=== PATIENT | female | born 1950 | race American Indian/Alaskan Native ===

== ENCOUNTER 2016-12-10 13:29 | Inpatient (IN) | payer MEDICARE ==
[2016-12-10] MEDS ORDERED: NACL 0.9% 500 ML 500 ML IV ONE (14:03)
[2016-12-10 14:35] LABS: Basophils % (Auto) 0.9 % (0.0-1.8); Eosinophils % (Auto) 0.3 % (0.0-4.3); Mean Corpuscular HGB Conc 30 % (30-34); Mean Corpuscular Volume 79 fl (79-97); Platelet Count 374 K/mm3 (140-440); Red Blood Count 3.67 M/mm3 (3.65-5.03); Red Cell Distribution Width 17.9 % (13.2-15.2); White Blood Count 11.7 K/mm3 (4.5-11.0)
[2016-12-10 14:42] LABS: Hemoglobin 8.6 gm/dl (10.1-14.3); Mean Corpuscular Hemoglobin 23 pg (28-32)
[2016-12-10 14:43] LABS: INR 1.42 (0.87-1.13); Partial Thromboplastin Time 26.8 Sec. (24.2-36.6)
[2016-12-10 14:54] LABS: Alanine Aminotransferase < 5 units/L (7-56); Albumin/Globulin Ratio 0.4 %; Alkaline Phosphatase 123 units/L (35-129); Anion Gap 27 mmol/L; Calcium 8.9 mg/dL (8.4-10.2); Carbon Dioxide 15 mmol/L (22-30); Glucose 101 mg/dL (65-100); Potassium 4.9 mmol/L (3.6-5.0); Sodium 146 mmol/L (137-145); Total Protein 9.9 g/dL (6.3-8.2)
[2016-12-10 15:04] LABS: BUN/Creatinine Ratio 26.44; Blood Urea Nitrogen 119 mg/dL (7-17)
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
[2016-12-10 15:49] LABS: Bacteria,Urine 1+ /HPF (Negative); Bilirubin,Urine NEG (Negative); Blood,Urine LG (Negative); Ketones,Urine TR mg/dL (Negative); Leukocyte Esterase,Urine MOD (Negative); Mucus,Urine 3+ /HPF; Nitrite,Urine NEG (Negative); Urobilinogen,Urine < 2.0 mg/dL (<2.0)
[2016-12-10 15:51] LABS: RBC,Urine > 182.0 /HPF (0.0-6.0)
[2016-12-10] MEDS ORDERED: NACL 0.9% 1000 ML 1,000 ML IV ONE (15:51)
[2016-12-10 15:52] LABS: WBC,Urine > 182.0 /HPF (0.0-6.0)
[2016-12-10] MEDS ORDERED: BABY ASPIRIN PO ONE (15:54)
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
[2016-12-10] MEDS ORDERED: ZOFRAN IV PRN (17:11)
[2016-12-10] MEDS ORDERED: DULCOLAX PR PRN (17:11)
[2016-12-10] MEDS ORDERED: MILK OF MAGNESIA PO PRN (17:11)
--- NOTE | 2016-12-10 17:55 | XRay Report ---
FINAL REPORT PROCEDURE: Chest. TECHNIQUE: Single frontal view. HISTORY: Possible sepsis. COMPARISON: No prior studies are available for comparison. FINDINGS: The heart and mediastinum appear normal. There is calcification in the thoracic aorta. The lungs are clear and well expanded. There are no pleural effusions. There is a ventriculoperitoneal shunt catheter coursing longitudinally to the left of the thoracic spine. The regional skeleton appears intact. IMPRESSION: No evidence of acute cardiopulmonary disease.
[2016-12-10] MEDS ORDERED: VANCOMYCIN PHARMACY TO DOSE IV SCH (18:00)
[2016-12-10] MEDS ORDERED: VANCOMYCIN/NS 1 GM/250 ML 1 GM/250 ML BAG IV ONE (20:00)
[2016-12-10] MEDS: D5NS 1,000 ML IV SCH (20:54)
[2016-12-10] MEDS: UNASYN/NS 3 GM/100 ML 3 GM/100 ML BAG IV SCH (20:55)
[2016-12-11 04:50] LABS: Basophils % (Auto) 0.9 % (0.0-1.8); Eosinophils % (Auto) 1.2 % (0.0-4.3); Hematocrit 24.7 % (30.3-42.9); Hemoglobin 7.7 gm/dl (10.1-14.3); Mean Corpuscular HGB Conc 31 % (30-34); Mean Corpuscular Volume 79 fl (79-97); Platelet Count 238 K/mm3 (140-440); Red Blood Count 3.14 M/mm3 (3.65-5.03); Red Cell Distribution Width 18.1 % (13.2-15.2); White Blood Count 7.4 K/mm3 (4.5-11.0)
[2016-12-11 05:09] LABS: INR 1.29 (0.87-1.13)
[2016-12-11 05:11] LABS: Mean Corpuscular Hemoglobin 24 pg (28-32)
[2016-12-11] MEDS: UNASYN/NS 3 GM/100 ML 3 GM/100 ML BAG IV SCH ×2 (06:41→17:50)
[2016-12-11] MEDS: TYLENOL PO PRN ×2 (06:42→12:40)
--- NOTE | 2016-12-11 11:10 | Progress Note ---
Assessment and Plan Assessment and plan: Sepsis with UTI. Follow-up blood and urine cultures and lactic acid levels. Acute renal failure. Etiology secondary to acute kidney injury/sepsis/ATN/ dehydration/vasomotor nephropathy.. Continue IV fluid hydration. Nephrology consultation pending. Anemia. ? Etiology. Check iron studies, LDH, TSH, retic count and Hemoccult stools. Stage IV decubitus ulcer. Wound care. Debility. Physical therapy evaluation. SNF placement. DVT prophylaxis. Continue heparin. History Interval history: Patient states her dysuria is better. No new complaints overnight. Hospitalist Physical - Constitutional Vitals: Temp Pulse Resp BP Pulse Ox 98.2 F 77 20 96/49 100 12/11/16 10:22 12/11/16 10:22 12/11/16 10:22 12/11/16 10:22 12/10/16 23:00 General appearance: Present: no acute distress, well-nourished - EENT Eyes: Present: PERRL, EOM intact ENT: hearing intact, clear oral mucosa, dentition normal - Neck Neck: Present: supple, normal ROM - Respiratory Respiratory effort: normal Respiratory: bilateral: CTA - Cardiovascular Rhythm: regular Heart Sounds: Present: S1 & S2. Absent: gallop, rub - Extremities Extremities: no ischemia, No edema, Full ROM - Abdominal General gastrointestinal: soft, non-tender, non-distended, normal bowel sounds - Integumentary Integumentary: Present: clear, warm, dry - Neurologic Neurologic: CNII-XII intact, moves all extremities Results - Labs CBC & Chem 7: 12/11/16 04:12 12/10/16 14:18 Labs: Laboratory Last Values WBC 7.4 K/mm3 (4.5-11.0) 12/11/16 04:12 RBC 3.14 M/mm3 (3.65-5.03) L 12/11/16 04:12 Hgb 7.7 gm/dl (10.1-14.3) L 12/11/16 04:12 Hct 24.7 % (30.3-42.9) L 12/11/16 04:12 MCV 79 fl (79-97) 12/11/16 04:12 MCH 24 pg (28-32) L 12/11/16 04:12 MCHC 31 % (30-34) 12/11/16 04:12 RDW 18.1 % (13.2-15.2) H 12/11/16 04:12 Plt Count 238 K/mm3 (140-440) 12/11/16 04:12 Lymph % (Auto) 24.7 % (13.4-35.0) 12/11/16 04:12 [place] % (Auto) 9.2 % (0.0-7.3) H 12/11/16 04:12 Eos % (Auto) 1.2 % (0.0-4.3) 12/11/16 04:12 Baso % (Auto) 0.9 % (0.0-1.8) 12/11/16 04:12 Lymph # 1.8 K/mm3 (1.2-5.4) 12/11/16 04:12 [place] # 0.7 K/mm3 (0.0-0.8) 12/11/16 04:12 Eos # 0.1 K/mm3 (0.0-0.4) 12/11/16 04:12 Baso # 0.1 K/mm3 (0.0-0.1) 12/11/16 04:12 Seg Neutrophils % 64.0 % (40.0-70.0) 12/11/16 04:12 Seg Neutrophils # 4.7 K/mm3 (1.8-7.7) 12/11/16 04:12 PT 16.0 Sec. (12.2-14.9) H 12/11/16 04:12 INR 1.29 (0.87-1.13) H 12/11/16 04:12 APTT 26.8 Sec. (24.2-36.6) 12/10/16 14:18 VBG pH 7.242 (7.320-7.420) L 12/10/16 14:18 Sodium 146 mmol/L (137-145) H 12/10/16 14:18 Potassium 4.9 mmol/L (3.6-5.0) 12/10/16 14:18 Chloride 109.0 mmol/L (98-107) H 12/10/16 14:18 Carbon Dioxide 15 mmol/L (22-30) L 12/10/16 14:18 Anion Gap 27 mmol/L 12/10/16 14:18 BUN 119 mg/dL (7-17) H 12/10/16 14:18 Creatinine 4.5 mg/dL (0.7-1.2) H 12/10/16 14:18 Estimated GFR 12 ml/min 12/10/16 14:18 BUN/Creatinine Ratio 26.44 % 12/10/16 14:18 Glucose 101 mg/dL (65-100) H 12/10/16 14:18 Lactic Acid 1.30 mmol/L (0.7-2.0) 12/10/16 17:17 Calcium 8.9 mg/dL (8.4-10.2) 12/10/16 14:18 Total Bilirubin 0.40 mg/dL (0.1-1.2) 12/10/16 14:18 AST 7 units/L (5-40) 12/10/16 14:18 ALT < 5 units/L (7-56) L 12/10/16 14:18 Alkaline Phosphatase 123 units/L (35-129) 12/10/16 14:18 NT-Pro-B Natriuret Pep 747.0 pg/mL (0-900) 12/10/16 14:18 Total Protein 9.9 g/dL (6.3-8.2) H 12/10/16 14:18 Albumin 3.0 g/dL (3.9-5) L 12/10/16 14:18 Albumin/Globulin Ratio 0.4 % 12/10/16 14:18 Urine Color Yellow (Yellow) 12/10/16 15:01 Urine Turbidity Turbid (Clear) 12/10/16 15:01 Urine pH 5.0 (5.0-7.0) 12/10/16 15:01 Ur Specific [place] 1.021 (1.003-1.030) 12/10/16 15:01 Urine Protein 100 mg/dl mg/dL (Negative) 12/10/16 15:01 Urine Glucose (UA) Neg mg/dL (Negative) 12/10/16 15:01 Urine Ketones Tr mg/dL (Negative) 12/10/16 15:01 Urine Blood Lg (Negative) 12/10/16 15:01 Urine Nitrite Neg (Negative) 12/10/16 15:01 Urine Bilirubin Neg (Negative) 12/10/16 15:01 Urine Urobilinogen < 2.0 mg/dL (<2.0) 12/10/16 15:01 Ur Leukocyte Esterase Mod (Negative) 12/10/16 15:01 Urine WBC (Auto) > 182.0 /HPF (0.0-6.0) H 12/10/16 15:01 Urine RBC (Auto) > 182.0 /HPF (0.0-6.0) 12/10/16 15:01 Urine Bacteria (Auto) 1+ /HPF (Negative) 12/10/16 15:01 Urine WBC Clumps 3+ /HPF 12/10/16 15:01 Urine Mucus 3+ /HPF 12/10/16 15:01
[2016-12-11 12:25] LABS: Reticulocyte % 1.55 % (0.78-2.58)
--- NOTE | 2016-12-11 12:29 | Consultation ---
History of Present Illness - Reason for Consult Consult date: 12/11/16 acute renal failure, hypernatremia, metabolic acidosis - History of Present Illness Patient is a 66 year old AAF with medical history significant for bilateral blindness and bedbound status was transported to the emergency department as patient is unable to self care. Patient is a poor historian. She has been bedridden for greater than 2 years since she "fell". She states that her son is her only family member in town. Apparently he is a cdl team truck driver and has not been home recently. Patient has not eaten for about 3 days. She lives alone and refused NH inthe past. She has decubitus ulcer in the presacral area. Patient denies any N, V, D, abd pain, fever, chills, rash, dizziness, cp, SOB, cough, leg swelling or syncope. Her creatinine was 4.5 on admission and the baseline renal function is unknown. Medications and Allergies Allergies Allergy/AdvReac Type Severity Reaction Status Date / Time No Known Allergies Allergy Unverified 12/10/16 13:30 Home Medications Medication Instructions Recorded Confirmed Last Taken Type No Known Home Medications [No 12/10/16 12/10/16 Unknown History Reported Home Medications] Active Meds: Active Medications Acetaminophen (Tylenol) 650 mg PO Q4H PRN PRN Reason: Pain MILD(1-3)/Fever >100.5/MCDOWELL Last Admin: 12/11/16 06:42 Dose: 650 mg Bisacodyl (Dulcolax) 10 mg [place] QDAY PRN PRN Reason: Constipation unrelieved by MOM Dextrose/Sodium Chloride (D5ns) 1,000 mls @ 125 mls/hr IV DIRECT [facility] Last Admin: 12/10/16 20:54 Dose: 125 mls/hr Ampicillin Sodium/Sulbactam Sodium (Unasyn/Ns 3 Gm/100 Ml) 3 gm in 100 mls @ 100 mls/hr IV Q12H CLAUDIO PRN Reason: Protocol Last Admin: 12/11/16 06:41 Dose: 100 mls/hr Magnesium Hydroxide (Milk Of Magnesia) 30 ml PO Q4H PRN PRN Reason: Constipation Ondansetron HCl (Zofran) 4 mg IV Q8H PRN PRN Reason: N/V unrelieved by Reglan Vancomycin HCl (Vancomycin Pharmacy To Dose) 1 each IV PKCONSULT CLAUDIO PRN Reason: Protocol Review of Systems ROS unobtainable: due to mental status Exam - Vital Signs Vital signs: Vital Signs Temp Pulse Resp BP Pulse Ox 98.7 F 102 H 18 102/56 97 12/10/16 13:30 12/10/16 13:30 12/10/16 13:30 12/10/16 13:30 12/10/16 13:30 - General Appearance General appearance: well-developed, appears stated age, frail, other (no distress) EENT: ATNC, mucous membranes dry, other (absent left eye) Neck: Present: neck supple, trachea midline Respiratory: Clear to Ascultation Heart: regular, S1S2, no murmurs Gastrointestinal: Present: normoactive bowel sounds. Absent: tenderness, distended Integumentary: no rash Neurologic: no asterixis, confused, disoriented, other (bilateral blindness) Musculoskeletal: Present: other (no edema) Psychiatric: mood/affect appropriate, cooperative Results - Lab Results 12/12/16 05:06 12/12/16 05:06 Most recent lab results Calcium 8.9 mg/dL (8.4-10.2) 12/10/16 14:18 Assessment and Plan - Patient Problems (1) DIPAK (acute kidney injury) Current Visit: Yes Status: Acute Plan to address problem: Hemodynamically mediated DIPAK. Renal function is improving. Continue IV fluids. (2) Metabolic acidosis, increased anion gap Current Visit: Yes Status: Acute Plan to address problem: Normal Lactate level. Continue IV fluids. (3) Hypernatremia Current Visit: Yes Status: Acute Plan to address problem: Change IV fludis to 1/2 NS. (4) Prerenal azotemia Current Visit: Yes Status: Acute Plan to address problem: Continue IV fluids. (5) Anemia Current Visit: Yes Status: Chronic Qualifiers: Anemia type: iron deficiency Iron deficiency anemia type: I Vitamin B12 deficiency anemia type: V Folate deficiency anemia type: F Bone marrow failure anemia type: B Hemolytic anemia type: H Other causes of anemia: O Chronic kidney disease stage: C Qualified Code(s): D64.9 - Anemia, unspecified
[2016-12-11] MEDS: D5NS 1,000 ML IV SCH (12:42)
[2016-12-11 12:51] LABS: Iron 18 ug/dL (37-170); Lactate Dehydrogenase 92 units/L (91-180); Total Iron Binding Capacity 108 mcg/dL (250-450)
[2016-12-11 13:24] LABS: BUN/Creatinine Ratio 46.66; Calcium 8.2 mg/dL (8.4-10.2); Chloride 116.3 mmol/L (98-107); Potassium 4.1 mmol/L (3.6-5.0)
[2016-12-11] MEDS: NACL 0.45% 1000 ML 1,000 ML IV SCH ×2 (16:07→23:00)
[2016-12-12] MEDS: TYLENOL PO PRN ×2 (03:50→10:08)
[2016-12-12] MEDS: UNASYN/NS 3 GM/100 ML 3 GM/100 ML BAG IV SCH ×3 (06:19→18:52)
[2016-12-12 06:34] LABS: Basophils % (Auto) 0.8 % (0.0-1.8); Eosinophils % (Auto) 1.9 % (0.0-4.3); Hematocrit 24.4 % (30.3-42.9); Hemoglobin 7.7 gm/dl (10.1-14.3); Mean Corpuscular HGB Conc 32 % (30-34); Mean Corpuscular Volume 79 fl (79-97); Platelet Count 204 K/mm3 (140-440); Red Blood Count 3.07 M/mm3 (3.65-5.03); White Blood Count 6.1 K/mm3 (4.5-11.0)
[2016-12-12 06:36] LABS: Mean Corpuscular Hemoglobin 25 pg (28-32)
[2016-12-12 06:42] LABS: Anion Gap 20 mmol/L; Blood Urea Nitrogen 32 mg/dL (7-17); Calcium 8.3 mg/dL (8.4-10.2); Carbon Dioxide 15 mmol/L (22-30); Creatine Kinase 12 units/L (30-135); Glucose 93 mg/dL (65-100); Potassium 4.1 mmol/L (3.6-5.0); Sodium 141 mmol/L (137-145)
--- NOTE | 2016-12-12 08:00 | Ultrasound Report ---
ULTRASOUND RENAL BILATERAL HISTORY: Acute renal failure. TECHNIQUE: transabdominal ultrasound with color Doppler interrogation. FINDINGS: There are no previous studies for comparison at this facility. The right kidney measures 13.2 x 5.8 x 6.7cm. Right renal cortex: 1.7cm. The right renal parenchyma is echogenic consistent with nonspecific renal parenchymal disease or acute renal failure. There is no evidence for cystic disease, mass, calculus or hydronephrosis. No normal left kidney is identified in the left renal fossa. There is a complex bilobed partially cystic masslike lesion measuring up to 14 x 8 x 7 cm. I am not entirely convinced this represents the left kidney. This may represent a left renal mass. Left renal agenesis, left renal ectopia or left nephrectomy could also be considered. IMPRESSION: Normal sized but echogenic right kidney consistent with nonspecific renal parenchymal disease or acute renal failure. No normal left kidney is identified on ultrasound. Further evaluation with CT abdomen and pelvis, preferably with IV contrast if renal function permits, is recommended.
[2016-12-12] MEDS ORDERED: SODIUM PHOSPHATE 30 MMOL in NACL 0.9% 500 ML 500 ML IV ONE (08:24)
--- NOTE | 2016-12-12 08:24 | Progress Note ---
Assessment and Plan - Patient Problems (1) DIPAK (acute kidney injury) Current Visit: Yes Status: Acute Plan to address problem: Hemodynamically mediated DIPAK. Renal function has improved. Continue IV fluids. Replete Phos. (2) Hypernatremia Current Visit: Yes Status: Acute Plan to address problem: Improved. (3) Metabolic acidosis, increased anion gap Current Visit: Yes Status: Acute Plan to address problem: Normal Lactate level. Continue IV fluids. (4) Prerenal azotemia Current Visit: Yes Status: Acute Plan to address problem: Continue IV fluids. (5) Left kidney mass Current Visit: Yes Status: Chronic Plan to address problem: CT abdomen with IV contrast. (6) Anemia Current Visit: Yes Status: Chronic Qualifiers: Anemia type: iron deficiency Iron deficiency anemia type: I Vitamin B12 deficiency anemia type: V Folate deficiency anemia type: F Bone marrow failure anemia type: B Hemolytic anemia type: H Other causes of anemia: O Chronic kidney disease stage: C Qualified Code(s): D64.9 - Anemia, unspecified Subjective Date of service: 12/12/16 Interval history: Patient is feeling better. 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
[2016-12-12] MEDS: NACL 0.45% 1000 ML 1,000 ML IV SCH (10:12)
--- NOTE | 2016-12-12 11:21 | Progress Note ---
Assessment and Plan Assessment and plan: Sepsis with UTI. Follow-up blood and urine cultures and lactic acid levels. Acute renal failure. Etiology secondary to acute kidney injury/sepsis/ATN/ dehydration/vasomotor nephropathy. Continue IV fluid hydration. Nephrology following Left kidney mass. CT abdomen with IV contrast pending. Hypernatremia. Improved. Anemia. ? Etiology. Check iron studies, LDH, TSH, retic count and Hemoccult stools. Stage IV decubitus ulcer. Wound care. Debility. Physical therapy evaluation. SNF placement. DVT prophylaxis. Continue heparin. History Interval history: Patient states her dysuria is better. No new complaints overnight. Hospitalist Physical - Constitutional Vitals: Temp Pulse Resp BP Pulse Ox 98.4 F 77 20 114/63 98 12/12/16 10:07 12/12/16 10:07 12/12/16 10:12/12/16 10:12/11/16 10:00 General appearance: Present: no acute distress, well-nourished - EENT Eyes: Present: PERRL, EOM intact ENT: hearing intact, clear oral mucosa, dentition normal - Neck Neck: Present: supple, normal ROM - Respiratory Respiratory effort: normal Respiratory: bilateral: CTA - Cardiovascular Rhythm: regular Heart Sounds: Present: S1 & S2. Absent: gallop, rub - Extremities Extremities: no ischemia, No edema, Full ROM - Abdominal General gastrointestinal: soft, non-tender, non-distended, normal bowel sounds - Integumentary Integumentary: Present: clear, warm, dry - Neurologic Neurologic: CNII-XII intact, moves all extremities Results - Labs CBC & Chem 7: 12/12/16 05:06 12/12/16 05:06 Labs: Laboratory Last Values WBC 6.1 K/mm3 (4.5-11.0) 12/12/16 05:06 RBC 3.07 M/mm3 (3.65-5.03) L 12/12/16 05:06 Hgb 7.7 gm/dl (10.1-14.3) L 12/12/16 05:06 Hct 24.4 % (30.3-42.9) L 12/12/16 05:06 MCV 79 fl (79-97) 12/12/16 05:06 MCH 25 pg (28-32) L 12/12/16 05:06 MCHC 32 % (30-34) 12/12/16 05:06 RDW 18.0 % (13.2-15.2) H 12/12/16 05:06 Plt Count 204 K/mm3 (140-440) 12/12/16 05:06 Lymph % (Auto) 34.1 % (13.4-35.0) 12/12/16 05:06 [place] % (Auto) 6.7 % (0.0-7.3) 12/12/16 05:06 Eos % (Auto) 1.9 % (0.0-4.3) 12/12/16 05:06 Baso % (Auto) 0.8 % (0.0-1.8) 12/12/16 05:06 Lymph # 2.1 K/mm3 (1.2-5.4) 12/12/16 05:06 [place] # 0.4 K/mm3 (0.0-0.8) 12/12/16 05:06 Eos # 0.1 K/mm3 (0.0-0.4) 12/12/16 05:06 Baso # 0.0 K/mm3 (0.0-0.1) 12/12/16 05:06 Seg Neutrophils % 56.5 % (40.0-70.0) 12/12/16 05:06 Seg Neutrophils # 3.4 K/mm3 (1.8-7.7) 12/12/16 05:06 Percent Retic 1.55 % (0.78-2.58) 12/11/16 11:39 PT 16.0 Sec. (12.2-14.9) H 12/11/16 04:12 INR 1.29 (0.87-1.13) H 12/11/16 04:12 APTT 26.8 Sec. (24.2-36.6) 12/10/16 14:18 VBG pH 7.242 (7.320-7.420) L 12/10/16 14:18 Sodium 141 mmol/L (137-145) 12/12/16 05:06 Potassium 4.1 mmol/L (3.6-5.0) 12/12/16 05:06 Chloride 110.0 mmol/L (98-107) H 12/12/16 05:06 Carbon Dioxide 15 mmol/L (22-30) L 12/12/16 05:06 Anion Gap 20 mmol/L 12/12/16 05:06 BUN 32 mg/dL (7-17) H 12/12/16 05:06 Creatinine 0.8 mg/dL (0.7-1.2) 12/12/16 05:06 Estimated GFR > 60 ml/min 12/12/16 05:06 BUN/Creatinine Ratio 40.00 % 12/12/16 05:06 Glucose 93 mg/dL (65-100) 12/12/16 05:06 Lactic Acid 1.30 mmol/L (0.7-2.0) 12/10/16 17:17 Calcium 8.3 mg/dL (8.4-10.2) L 12/12/16 05:06 Phosphorus 1.20 mg/dL (2.5-4.5) L 12/12/16 05:06 Magnesium 1.70 mg/dL (1.7-2.3) 12/12/16 05:06 Iron 18 ug/dL (37-170) L 12/11/16 11:39 TIBC 108 mcg/dL (250-450) L 12/11/16 11:39 Total Bilirubin 0.40 mg/dL (0.1-1.2) 12/10/16 14:18 AST 7 units/L (5-40) 12/10/16 14:18 ALT < 5 units/L (7-56) L 12/10/16 14:18 Alkaline Phosphatase 123 units/L (35-129) 12/10/16 14:18 Lactate Dehydrogenase 92 units/L (91-180) 12/11/16 11:39 Total Creatine Kinase 12 units/L (30-135) L 12/12/16 05:06 NT-Pro-B Natriuret Pep 747.0 pg/mL (0-900) 12/10/16 14:18 Total Protein 9.9 g/dL (6.3-8.2) H 12/10/16 14:18 Albumin 3.0 g/dL (3.9-5) L 12/10/16 14:18 Albumin/Globulin Ratio 0.4 % 12/10/16 14:18 Vitamin B12 491.1 pg/mL (211-911) 12/11/16 11:39 Folate 3.44 ng/mL (7.3-26.0) L 12/11/16 11:39 Urine Color Yellow (Yellow) 12/10/16 15: Urine Turbidity Turbid (Clear) 12/10/16 15: Urine pH 5.0 (5.0-7.0) 12/10/16 15:01 Ur Specific [place] 1.021 (1.003-1.030) 12/10/16 15:01 Urine Protein 100 mg/dl mg/dL (Negative) 12/10/16 15:01 Urine Glucose (UA) Neg mg/dL (Negative) 12/10/16 15: Urine Ketones Tr mg/dL (Negative) 12/10/16 15:01 Urine Blood Lg (Negative) 12/10/16 15: Urine Nitrite Neg (Negative) 12/10/16 15: Urine Bilirubin Neg (Negative) 12/10/16 15:01 Urine Urobilinogen < 2.0 mg/dL (<2.0) 12/10/16 15:01 Ur Leukocyte Esterase Mod (Negative) 12/10/16 15:01 Urine WBC (Auto) > 182.0 /HPF (0.0-6.0) H 12/10/16 15:01 Urine RBC (Auto) > 182.0 /HPF (0.0-6.0) 12/10/16 15:01 Urine Bacteria (Auto) 1+ /HPF (Negative) 12/10/16 15:01 Urine WBC Clumps 3+ /HPF 12/10/16 15:01 Urine Mucus 3+ /HPF 12/10/16 15:01
[2016-12-12] MEDS ORDERED: NACL ONE (12:11)
--- NOTE | 2016-12-12 14:28 | Cat Scan Report ---
CT SCAN OF THE ABDOMEN AND PELVIS WITHOUT AND WITH CONTRAST: HISTORY: Left kidney mass. TECHNIQUE: Helical CT before and after IV contrast. Sagittal and coronal reformatted images. FINDINGS: Renal ultrasound performed 12/11/16 was reviewed. The right kidney and collecting system are unremarkable. The left kidney is markedly abnormal. There appears to be severe chronic hydronephrosis in the left kidney with diffuse cortical thinning. There are numerous stones in the left kidney. There appears to be a large stone near the left ureteropelvic junction measuring up to 2.2 x 1.5 cm which appears to be obstructing. The remainder of the left ureter is normal course and caliber. There is mild diffuse bladder wall thickening with mucosal enhancement suggesting a cystitis is present. A Olsen catheter is in place. The liver is normal in size and is without focal defect. No gallstones or biliary dilatation are noted. The spleen and pancreas demonstrate a normal size and attenuation with no evidence of abnormal mass. The adrenal glands are normal. There is no intestinal obstruction or ascites. There are moderate diffuse atherosclerotic plaques in the aorta but no evidence for aneurysm, dissection or stenosis. The uterus and adnexa are within normal limits. There is no evidence of peritoneal air or fluid. There is no evidence of any abnormal masses or fluid collections within the pelvis. No adenopathy is identified. IMPRESSION: Severely abnormal left kidney. Findings are most consistent with chronic obstructive uropathy secondary to a stone in the left renal pelvis/ureteropelvic junction. There is severe left hydronephrosis and cortical thinning throughout the left kidney. No definite renal mass is appreciated. Findings consistent with cystitis.
[2016-12-12] MEDS: VANCOMYCIN 750 MG in NACL 0.9% 250ML 250 ML IV SCH (16:40)
[2016-12-12] MEDS: MORPHINE IV PRN (16:54)
[2016-12-13] MEDS: UNASYN/NS 3 GM/100 ML 3 GM/100 ML BAG IV SCH ×4 (00:51→17:42)
[2016-12-13] MEDS: NACL 0.45% 1000 ML 1,000 ML IV SCH ×2 (00:55→10:53)
[2016-12-13 06:04] LABS: Basophils % (Auto) 0.6 % (0.0-1.8); Eosinophils % (Auto) 1.4 % (0.0-4.3); Hematocrit 23.8 % (30.3-42.9); Hemoglobin 7.7 gm/dl (10.1-14.3); Mean Corpuscular HGB Conc 32 % (30-34); Mean Corpuscular Volume 77 fl (79-97); Platelet Count 198 K/mm3 (140-440); Red Cell Distribution Width 17.3 % (13.2-15.2); White Blood Count 6.4 K/mm3 (4.5-11.0)
[2016-12-13 06:06] LABS: Mean Corpuscular Hemoglobin 25 pg (28-32)
[2016-12-13 06:16] LABS: Anion Gap 18 mmol/L; BUN/Creatinine Ratio 23.33; Blood Urea Nitrogen 14 mg/dL (7-17); Calcium 7.6 mg/dL (8.4-10.2); Carbon Dioxide 21 mmol/L (22-30); Chloride 105.8 mmol/L (98-107); Glucose 81 mg/dL (65-100); Potassium 3.8 mmol/L (3.6-5.0); Sodium 141 mmol/L (137-145)
[2016-12-13] MEDS: TYLENOL PO PRN ×3 (06:46→17:42)
--- NOTE | 2016-12-13 08:08 | Progress Note ---
Assessment and Plan - Patient Problems (1) DIPAK (acute kidney injury) Current Visit: Yes Status: Acute Plan to address problem: Hemodynamically mediated DIPAK. Renal function has improved. Replete Mg and Phos. (2) Hypernatremia Current Visit: Yes Status: Acute Plan to address problem: Improved. (3) Metabolic acidosis, increased anion gap Current Visit: Yes Status: Acute Plan to address problem: Improving. Continue IV fluids. (4) Prerenal azotemia Current Visit: Yes Status: Acute Plan to address problem: Improved. (5) Hydronephrosis of left kidney Current Visit: Yes Status: Acute Plan to address problem: Chronic and non-functioning. (6) Anemia Current Visit: Yes Status: Chronic Qualifiers: Anemia type: iron deficiency Iron deficiency anemia type: I Vitamin B12 deficiency anemia type: V Folate deficiency anemia type: F Bone marrow failure anemia type: B Hemolytic anemia type: H Other causes of anemia: O Chronic kidney disease stage: C Subjective Date of service: 12/13/16 Interval history: Patient is feeling better. Objective - Vital Signs Vital signs: Vital Signs - 12hr 12/12/16 12/12/16 22:00 23:00 Temperature 98.9 F Pulse Rate 75 82 Respiratory 14 Rate Blood Pressure 96/51 O2 Sat by Pulse 100 Oximetry - General Appearance General appearance: well-developed, appears stated age, other (thin built) EENT: ATNC, mucous membranes moist, hearing intact Neck: supple Respiratory: Present: Clear to Ascultation Cardiology: regular, S1S2, no murmurs Gastrointestinal: normoactive bowel sounds, no tenderness Integumentary: no rash Neurologic: disoriented, other (bilateral blindness) Musculoskeletal: other (no edema) Psychiatric: mood/affect appropriate, cooperative - Lab 12/13/16 05:04 12/13/16 05:04 Most recent lab results Calcium 7.6 mg/dL (8.4-10.2) L 12/13/16 05:04 Phosphorus 1.50 mg/dL (2.5-4.5) L D 12/13/16 05:04 Magnesium 1.20 mg/dL (1.7-2.3) L 12/13/16 05:04
[2016-12-13] MEDS ORDERED: MAGNESIUM SULFATE 3 GM in NACL 0.9% 100 ML IV ONE (09:30)
[2016-12-13] MEDS ORDERED: KPHOS 15 MMOL in NACL 0.9% 250ML 250 ML IV ONE (09:30)
[2016-12-13] MEDS: VANCOMYCIN 750 MG in NACL 0.9% 250ML 250 ML IV SCH (12:00)
[2016-12-13] MEDS: PHOS-NAK PO SCH ×3 (12:00→22:35)
--- NOTE | 2016-12-13 13:16 | Progress Note ---
Assessment and Plan Assessment and plan: Sepsis with UTI. Follow-up blood and urine cultures and lactic acid levels. Acute renal failure. Etiology secondary to acute kidney injury/sepsis/ obstructive uropathy. Continue IV fluid hydration. Nephrology following Left hydronephrosis. Patient with chronic obstructive uropathy secondary to a stone in the left renal pelvis/ureteropelvic junction. Urology has been consulted and called 3 with no response. Hypernatremia. Improved. Anemia. ? Etiology. Check iron studies, LDH, TSH, retic count and Hemoccult stools. Stage IV decubitus ulcer. Wound care. Debility. Physical therapy evaluation. SNF placement. DVT prophylaxis. Continue heparin. History Interval history: Patient states her dysuria is better. No new complaints overnight. Hospitalist Physical - Constitutional Vitals: Temp Pulse Resp BP Pulse Ox 98.1 F 83 18 110/64 100 12/13/16 10:00 12/13/16 10:00 12/13/16 10:00 12/13/16 10:00 12/13/16 10:00 General appearance: Present: no acute distress, well-nourished - EENT Eyes: Present: PERRL, EOM intact ENT: hearing intact, clear oral mucosa, dentition normal - Neck Neck: Present: supple, normal ROM - Respiratory Respiratory effort: normal Respiratory: bilateral: CTA - Cardiovascular Rhythm: regular Heart Sounds: Present: S1 & S2. Absent: gallop, rub - Extremities Extremities: no ischemia, No edema, Full ROM - Abdominal General gastrointestinal: soft, non-tender, non-distended, normal bowel sounds - Integumentary Integumentary: Present: clear, warm, dry - Neurologic Neurologic: CNII-XII intact, moves all extremities Results - Labs CBC & Chem 7: 12/13/16 05:04 12/13/16 05:04 Labs: Laboratory Last Values WBC 6.4 K/mm3 (4.5-11.0) 12/13/16 05:04 RBC 3.10 M/mm3 (3.65-5.03) L 12/13/16 05:04 Hgb 7.7 gm/dl (10.1-14.3) L 12/13/16 05:04 Hct 23.8 % (30.3-42.9) L 12/13/16 05:04 MCV 77 fl (79-97) L 12/13/16 05:04 MCH 25 pg (28-32) L 12/13/16 05:04 MCHC 32 % (30-34) 12/13/16 05:04 RDW 17.3 % (13.2-15.2) H 12/13/16 05:04 Plt Count 198 K/mm3 (140-440) 12/13/16 05:04 Lymph % (Auto) 34.6 % (13.4-35.0) 12/13/16 05:04 [place] % (Auto) 7.1 % (0.0-7.3) 12/13/16 05:04 Eos % (Auto) 1.4 % (0.0-4.3) 12/13/16 05:04 Baso % (Auto) 0.6 % (0.0-1.8) 12/13/16 05:04 Lymph # 2.2 K/mm3 (1.2-5.4) 12/13/16 05:04 [place] # 0.5 K/mm3 (0.0-0.8) 12/13/16 05:04 Eos # 0.1 K/mm3 (0.0-0.4) 12/13/16 05:04 Baso # 0.0 K/mm3 (0.0-0.1) 12/13/16 05:04 Seg Neutrophils % 56.3 % (40.0-70.0) 12/13/16 05:04 Seg Neutrophils # 3.6 K/mm3 (1.8-7.7) 12/13/16 05:04 Percent Retic 1.55 % (0.78-2.58) 12/11/16 11:39 Haptoglobin 256 mg/dL (43-212) H 12/11/16 11:39 PT 16.0 Sec. (12.2-14.9) H 12/11/16 04:12 INR 1.29 (0.87-1.13) H 12/11/16 04:12 APTT 26.8 Sec. (24.2-36.6) 12/10/16 14:18 VBG pH 7.242 (7.320-7.420) L 12/10/16 14:18 Sodium 141 mmol/L (137-145) 12/13/16 05:04 Potassium 3.8 mmol/L (3.6-5.0) 12/13/16 05:04 Chloride 105.8 mmol/L (98-107) 12/13/16 05:04 Carbon Dioxide 21 mmol/L (22-30) L 12/13/16 05:04 Anion Gap 18 mmol/L 12/13/16 05:04 BUN 14 mg/dL (7-17) 12/13/16 05:04 Creatinine 0.6 mg/dL (0.7-1.2) L 12/13/16 05:04 Estimated GFR > 60 ml/min 12/13/16 05:04 BUN/Creatinine Ratio 23.33 % 12/13/16 05:04 Glucose 81 mg/dL (65-100) 12/13/16 05:04 Lactic Acid 1.30 mmol/L (0.7-2.0) 12/10/16 17:17 Calcium 7.6 mg/dL (8.4-10.2) L 12/13/16 05:04 Phosphorus 1.50 mg/dL (2.5-4.5) L D 12/13/16 05:04 Magnesium 1.20 mg/dL (1.7-2.3) L 12/13/16 05:04 Iron 18 ug/dL (37-170) L 12/11/16 11:39 TIBC 108 mcg/dL (250-450) L 12/11/16 11:39 Total Bilirubin 0.40 mg/dL (0.1-1.2) 12/10/16 14:18 AST 7 units/L (5-40) 12/10/16 14:18 ALT < 5 units/L (7-56) L 12/10/16 14:18 Alkaline Phosphatase 123 units/L (35-129) 12/10/16 14:18 Lactate Dehydrogenase 92 units/L (91-180) 12/11/16 11:39 Total Creatine Kinase 12 units/L (30-135) L 12/12/16 05:06 NT-Pro-B Natriuret Pep 747.0 pg/mL (0-900) 12/10/16 14:18 Total Protein 9.9 g/dL (6.3-8.2) H 12/10/16 14:18 Albumin 3.0 g/dL (3.9-5) L 12/10/16 14:18 Albumin/Globulin Ratio 0.4 % 12/10/16 14:18 Vitamin B12 491.1 pg/mL (211-911) 12/11/16 11:39 Folate 3.44 ng/mL (7.3-26.0) L 12/11/16 11:39 Urine Color Yellow (Yellow) 12/10/16 15:01 Urine Turbidity Turbid (Clear) 12/10/16 15:01 Urine pH 5.0 (5.0-7.0) 12/10/16 15:01 Ur Specific [place] 1.021 (1.003-1.030) 12/10/16 15:01 Urine Protein 100 mg/dl mg/dL (Negative) 12/10/16 15:01 Urine Glucose (UA) Neg mg/dL (Negative) 12/10/16 15: Urine Ketones Tr mg/dL (Negative) 12/10/16 15:01 Urine Blood Lg (Negative) 12/10/16 15:01 Urine Nitrite Neg (Negative) 12/10/16 15:01 Urine Bilirubin Neg (Negative) 12/10/16 15:01 Urine Urobilinogen < 2.0 mg/dL (<2.0) 12/10/16 15:01 Ur Leukocyte Esterase Mod (Negative) 12/10/16 15:01 Urine WBC (Auto) > 182.0 /HPF (0.0-6.0) H 12/10/16 15:01 Urine RBC (Auto) > 182.0 /HPF (0.0-6.0) 12/10/16 15:01 Urine Bacteria (Auto) 1+ /HPF (Negative) 12/10/16 15:01 Urine WBC Clumps 3+ /HPF 12/10/16 15:01 Urine Mucus 3+ /HPF 12/10/16 15:01
[2016-12-13] MEDS: MORPHINE IV PRN (19:10)
[2016-12-14] MEDS: UNASYN/NS 3 GM/100 ML 3 GM/100 ML BAG IV SCH ×3 (00:30→13:00)
[2016-12-14 06:09] LABS: Basophils % (Auto) 0.5 % (0.0-1.8); Hematocrit 27.3 % (30.3-42.9); Hemoglobin 8.7 gm/dl (10.1-14.3); Mean Corpuscular HGB Conc 32 % (30-34); Mean Corpuscular Volume 77 fl (79-97); Platelet Count 183 K/mm3 (140-440); Red Blood Count 3.55 M/mm3 (3.65-5.03); Red Cell Distribution Width 17.5 % (13.2-15.2); White Blood Count 6.4 K/mm3 (4.5-11.0)
[2016-12-14 06:10] LABS: Mean Corpuscular Hemoglobin 24 pg (28-32)
[2016-12-14 06:32] LABS: Blood Urea Nitrogen 9 mg/dL (7-17); Calcium 6.9 mg/dL (8.4-10.2); Carbon Dioxide 19 mmol/L (22-30); Chloride 103.2 mmol/L (98-107); Glucose 90 mg/dL (65-100); Sodium 138 mmol/L (137-145)
[2016-12-14] MEDS: PHOS-NAK PO SCH ×3 (06:50→22:20)
[2016-12-14 06:57] LABS: Anion Gap 20 mmol/L; Potassium 4.5 mmol/L (3.6-5.0)
[2016-12-14] MEDS: TYLENOL PO PRN ×3 (07:42→20:28)
--- NOTE | 2016-12-14 09:34 | Progress Note ---
Assessment and Plan - Patient Problems (1) DIPAK (acute kidney injury) Current Visit: Yes Status: Acute Plan to address problem: Hemodynamically mediated DIPAK. Renal function has improved. Replete Mg and Phos. (2) Hypernatremia Current Visit: Yes Status: Acute Plan to address problem: Improved. (3) Metabolic acidosis, increased anion gap Current Visit: Yes Status: Acute (4) Prerenal azotemia Current Visit: Yes Status: Acute Plan to address problem: Improved. (5) Hydronephrosis of left kidney Current Visit: Yes Status: Acute Plan to address problem: Chronic and non-functioning. Patient refused any further intervention. (6) Anemia Current Visit: Yes Status: Chronic Qualifiers: Anemia type: iron deficiency Iron deficiency anemia type: I Vitamin B12 deficiency anemia type: V Folate deficiency anemia type: F Bone marrow failure anemia type: B Hemolytic anemia type: H Other causes of anemia: O Chronic kidney disease stage: C Subjective Date of service: 12/14/16 Interval history: Patient is feeling better. Objective - Vital Signs Vital signs: Vital Signs - 12hr 12/13/16 12/14/16 22:00 07:42 Temperature 97.9 F Pulse Rate 82 Respiratory 18 18 Rate Respiratory 17 Rate [Sacrum] Blood Pressure 115/64 O2 Sat by Pulse 100 Oximetry - General Appearance General appearance: well-developed, appears stated age, frail, other (no distress) EENT: ATNC, mucous membranes moist, hearing intact Neck: supple Respiratory: Present: Clear to Ascultation Cardiology: regular, S1S2, no murmurs Gastrointestinal: normoactive bowel sounds, no tenderness, no distended Integumentary: no rash Neurologic: no asterixis, alert and oriented x3, other (bilateral blindness) Musculoskeletal: other (no edema) Psychiatric: mood/affect appropriate, cooperative - Lab 12/14/16 05:43 12/14/16 05:43 Most recent lab results Calcium 6.9 mg/dL (8.4-10.2) L 12/14/16 05:43 Phosphorus 2.10 mg/dL (2.5-4.5) L D 12/14/16 05:43 Magnesium 1.50 mg/dL (1.7-2.3) L 12/14/16 05:43
[2016-12-14] MEDS: VANCOMYCIN 750 MG in NACL 0.9% 250ML 250 ML IV SCH (10:00)
--- NOTE | 2016-12-14 10:02 | Progress Note ---
Assessment and Plan Assessment and plan: Sepsis with UTI. Follow-up blood and urine cultures and lactic acid levels. Acute renal failure. Etiology secondary to acute kidney injury/sepsis/ obstructive uropathy. Continue IV fluid hydration. Nephrology following Left hydronephrosis. Patient with chronic obstructive uropathy secondary to a stone in the left renal pelvis/ureteropelvic junction. Urology recommends nuclear renal scan. Hypernatremia. Resolved.. Iron deficiency Anemia. Transfuse for hemoglobin less than 7.0. FOBT+. Consult GI for further evaluation. Stage IV decubitus ulcer. Wound care. Debility. Physical therapy evaluation. SNF placement. DVT prophylaxis. Continue heparin. Disposition. Patient will be discharged to SNF after nuclear renal scan. History Interval history: Patient states her dysuria is better. No new complaints overnight. Hospitalist Physical - Constitutional Vitals: Temp Pulse Resp BP Pulse Ox 97.9 F 82 18 115/64 100 12/13/16 22:00 12/13/16 22:00 12/14/16 07:42 12/13/16 22:00 12/13/16 22:00 General appearance: Present: no acute distress, well-nourished - EENT Eyes: Present: PERRL, EOM intact ENT: hearing intact, clear oral mucosa, dentition normal - Neck Neck: Present: supple, normal ROM - Respiratory Respiratory effort: normal Respiratory: bilateral: CTA - Cardiovascular Rhythm: regular Heart Sounds: Present: S1 & S2. Absent: gallop, rub - Extremities Extremities: no ischemia, No edema, Full ROM - Abdominal General gastrointestinal: soft, non-tender, non-distended, normal bowel sounds - Integumentary Integumentary: Present: clear, warm, dry - Neurologic Neurologic: CNII-XII intact, moves all extremities Results - Labs CBC & Chem 7: 12/14/16 05:43 12/14/16 05:43 Labs: Laboratory Last Values WBC 6.4 K/mm3 (4.5-11.0) 12/14/16 05:43 RBC 3.55 M/mm3 (3.65-5.03) L 12/14/16 05:43 Hgb 8.7 gm/dl (10.1-14.3) L 12/14/16 05:43 Hct 27.3 % (30.3-42.9) L 12/14/16 05:43 MCV 77 fl (79-97) L 12/14/16 05:43 MCH 24 pg (28-32) L 12/14/16 05:43 MCHC 32 % (30-34) 12/14/16 05:43 RDW 17.5 % (13.2-15.2) H 12/14/16 05:43 Plt Count 183 K/mm3 (140-440) 12/14/16 05:43 Lymph % (Auto) 32.9 % (13.4-35.0) 12/14/16 05:43 [place] % (Auto) 5.2 % (0.0-7.3) 12/14/16 05:43 Eos % (Auto) 2.0 % (0.0-4.3) 12/14/16 05:43 Baso % (Auto) 0.5 % (0.0-1.8) 12/14/16 05:43 Lymph # 2.1 K/mm3 (1.2-5.4) 12/14/16 05:43 [place] # 0.3 K/mm3 (0.0-0.8) 12/14/16 05:43 Eos # 0.1 K/mm3 (0.0-0.4) 12/14/16 05:43 Baso # 0.0 K/mm3 (0.0-0.1) 12/14/16 05:43 Seg Neutrophils % 59.4 % (40.0-70.0) 12/14/16 05:43 Seg Neutrophils # 3.8 K/mm3 (1.8-7.7) 12/14/16 05:43 Percent Retic 1.55 % (0.78-2.58) 12/11/16 11:39 Haptoglobin 256 mg/dL (43-212) H 12/11/16 11:39 PT 16.0 Sec. (12.2-14.9) H 12/11/16 04:12 INR 1.29 (0.87-1.13) H 12/11/16 04:12 APTT 26.8 Sec. (24.2-36.6) 12/10/16 14:18 VBG pH 7.242 (7.320-7.420) L 12/10/16 14:18 Sodium 138 mmol/L (137-145) 12/14/16 05:43 Potassium 4.5 mmol/L (3.6-5.0) 12/14/16 05:43 Chloride 103.2 mmol/L (98-107) 12/14/16 05:43 Carbon Dioxide 19 mmol/L (22-30) L 12/14/16 05:43 Anion Gap 20 mmol/L 12/14/16 05:43 BUN 9 mg/dL (7-17) 12/14/16 05:43 Creatinine 0.6 mg/dL (0.7-1.2) L 12/14/16 05:43 Estimated GFR > 60 ml/min 12/14/16 05:43 BUN/Creatinine Ratio 15.00 % 12/14/16 05:43 Glucose 90 mg/dL (65-100) 12/14/16 05:43 Lactic Acid 1.30 mmol/L (0.7-2.0) 12/10/16 17:17 Calcium 6.9 mg/dL (8.4-10.2) L 12/14/16 05:43 Phosphorus 2.10 mg/dL (2.5-4.5) L D 12/14/16 05:43 Magnesium 1.50 mg/dL (1.7-2.3) L 12/14/16 05:43 Iron 18 ug/dL (37-170) L 12/11/16 11:39 TIBC 108 mcg/dL (250-450) L 12/11/16 11:39 Total Bilirubin 0.40 mg/dL (0.1-1.2) 12/10/16 14:18 AST 7 units/L (5-40) 12/10/16 14:18 ALT < 5 units/L (7-56) L 12/10/16 14:18 Alkaline Phosphatase 123 units/L (35-129) 12/10/16 14:18 Lactate Dehydrogenase 92 units/L (91-180) 12/11/16 11:39 Total Creatine Kinase 12 units/L (30-135) L 12/12/16 05:06 NT-Pro-B Natriuret Pep 747.0 pg/mL (0-900) 12/10/16 14:18 Total Protein 9.9 g/dL (6.3-8.2) H 12/10/16 14:18 Albumin 3.0 g/dL (3.9-5) L 12/10/16 14:18 Albumin/Globulin Ratio 0.4 % 12/10/16 14:18 Vitamin B12 491.1 pg/mL (211-911) 12/11/16 11:39 Folate 3.44 ng/mL (7.3-26.0) L 12/11/16 11:39 Urine Color Yellow (Yellow) 12/10/16 15:01 Urine Turbidity Turbid (Clear) 12/10/16 15:01 Urine pH 5.0 (5.0-7.0) 12/10/16 15:01 Ur Specific [place] 1.021 (1.003-1.030) 12/10/16 15:01 Urine Protein 100 mg/dl mg/dL (Negative) 12/10/16 15:01 Urine Glucose (UA) Neg mg/dL (Negative) 12/10/16 15:01 Urine Ketones Tr mg/dL (Negative) 12/10/16 15:01 Urine Blood Lg (Negative) 12/10/16 15:01 Urine Nitrite Neg (Negative) 12/10/16 15:01 Urine Bilirubin Neg (Negative) 12/10/16 15:01 Urine Urobilinogen < 2.0 mg/dL (<2.0) 12/10/16 15:01 Ur Leukocyte Esterase Mod (Negative) 12/10/16 15:01 Urine WBC (Auto) > 182.0 /HPF (0.0-6.0) H 12/10/16 15:01 Urine RBC (Auto) > 182.0 /HPF (0.0-6.0) 12/10/16 15:01 Urine Bacteria (Auto) 1+ /HPF (Negative) 12/10/16 15:01 Urine WBC Clumps 3+ /HPF 12/10/16 15:01 Urine Mucus 3+ /HPF 12/10/16 15:01
--- NOTE | 2016-12-14 10:14 | Discharge Summary ---
Providers - Providers Date of Admission: 12/10/16 17:11 Date of discharge: 12/14/16 Attending physician: ROSA PACE 12/10/16 17:51 Consult to Physician [CONS] Routine Consulting Provider: PURVI GREGORIO Reason For Exam: DIPAK Place consult to:: Notified:: Phone number called:: [phone] Was contact made?: Yes If yes, spoke with:: DARLINE HWOARD Time called:: 10:42 12/10/16 17:54 Consult to Wound/ET Nurse [CONS] Routine Reason For Exam: wound eval 12/11/16 07:45 Consult to Case Management [CONS] Routine Services Needed at Discharge: Home Health Services Director Of Recruiting Notified:: DIA Beckford Physician Instructions: SNF placement 12/14/16 10:02 Consult to Physician [CONS] Routine Consulting Provider: NIKOS BABB Reason For Exam: FOBT+/anemia Primary care physician: [facility] Hospitalization Reason for admission: ARF Condition: Stable Hospital course: Patient is a 66 year old AAF with medical history significant for bilateral blindness and bedbound status was transported to the emergency department as patient is unable to self care. Patient is a poor historian. She has been bedridden for greater than 2 years since she "fell". She stated that her son is her only family member in town. Apparently he is a sound truck operator and has not been home recently. Patient reportedly had not eaten for about 3 days prior to admission. She lives alone and refused NH in the past. She has decubitus ulcer in the presacral area. Her creatinine was 4.5 on admission and the baseline renal function is unknown. Patient was admitted with diagnosis of sepsis with UTI, acute renal failure/acute kidney injury and hypernatremia. The patient was seen by nephrology in consultation. Renal ultrasound was obtained which reveals questionable left kidney mass. Further evaluation with an MRI revealed left hydronephrosis and chronic obstructive uropathy secondary to a stone in the left renal pelvis/ureteropelvic junction. Urology was also consulted and recommended nuclear renal scan and further follow-up as an outpatient. Dedicated discharge time 35 minutes. Disposition: DC-30 STILL A PATIENT Core Measure Documentation - Palliative Care Palliative Care/ Comfort Measures: Not Applicable - Core Measures Any of the following diagnoses?: none Exam - Constitutional Vitals: Temp Pulse Resp BP Pulse Ox 97.9 F 82 18 115/64 100 12/13/16 22:00 12/13/16 22:00 12/14/16 07:42 12/13/16 22:00 12/13/16 22:00 General appearance: Present: no acute distress, well-nourished - EENT Eyes: Present: PERRL ENT: hearing intact, clear oral mucosa - Neck Neck: Present: supple, normal ROM - Respiratory Respiratory effort: normal Respiratory: bilateral: CTA - Cardiovascular Heart Sounds: Present: S1 & S2. Absent: rub, click - Extremities Extremities: pulses symmetrical, No edema Peripheral Pulses: within normal limits - Abdominal General gastrointestinal: Present: soft, non-tender, non-distended, normal bowel sounds Female genitourinary: Present: normal - Integumentary Integumentary: Present: clear, warm, dry - Musculoskeletal Musculoskeletal: gait normal, strength equal bilaterally - Psychiatric Psychiatric: appropriate mood/affect, intact judgment & insight - Neurologic Neurologic: CNII-XII intact, moves all extremities Plan Activity: no restrictions Weight Bearing Status: Weight Bear as Tolerated Diet: regular Follow up with: PRIMARY CARE, [Primary Care Provider] - 3-5 Days
[2016-12-14] MEDS ORDERED: MAGNESIUM SULFATE 3 GM in NACL 0.9% 100 ML IV ONE (11:00)
[2016-12-14] MEDS ORDERED: SODIUM PHOSPHATE 30 MMOL in NACL 0.9% 500 ML 500 ML IV ONE (11:00)
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
[2016-12-14] MEDS: LEVAQUIN PO SCH (15:17)
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
--- NOTE | 2016-12-14 20:02 | Progress Note ---
Objective - Constitutional Vitals: Vital Signs - 12hr 12/14/16 10:00 Temperature 98.6 F Pulse Rate 87 Respiratory 18 Rate Blood Pressure 106/66 O2 Sat by Pulse 98 Oximetry - Labs CBC & Chem 7: 12/14/16 05:43 12/14/16 05:43 Labs: Abnormal lab results 12/14/16 12/14/16 Range/Units 05:43 05:43 RBC 3.55 L (3.65-5.03) M/mm3 Hgb 8.7 L (10.1-14.3) gm/dl Hct 27.3 L (30.3-42.9) % MCV 77 L (79-97) fl MCH 24 L (28-32) pg RDW 17.5 H (13.2-15.2) % Carbon Dioxide 19 L (22-30) mmol/L Creatinine 0.6 L (0.7-1.2) mg/dL Calcium 6.9 L (8.4-10.2) mg/dL Phosphorus 2.10 L D (2.5-4.5) mg/dL Magnesium 1.50 L (1.7-2.3) mg/dL
[2016-12-15] MEDS: TYLENOL PO PRN (05:10)
[2016-12-15] MEDS: PHOS-NAK PO SCH (05:10)
[2016-12-15] MEDS ORDERED: LASIX ONE (07:50)
[2016-12-15] MEDS ORDERED: LASIX IV ONE (07:58)
[2016-12-15 09:16] LABS: Basophils % (Auto) 0.5 % (0.0-1.8); Eosinophils % (Auto) 2.1 % (0.0-4.3); Hematocrit 26.6 % (30.3-42.9); Hemoglobin 8.3 gm/dl (10.1-14.3); Mean Corpuscular HGB Conc 31 % (30-34); Mean Corpuscular Volume 77 fl (79-97); Platelet Count 191 K/mm3 (140-440); Red Blood Count 3.44 M/mm3 (3.65-5.03); Red Cell Distribution Width 17.5 % (13.2-15.2); White Blood Count 6.1 K/mm3 (4.5-11.0)
[2016-12-15 09:18] LABS: Mean Corpuscular Hemoglobin 24 pg (28-32)
[2016-12-15 09:25] LABS: Anion Gap 16 mmol/L; BUN/Creatinine Ratio 13.75; Blood Urea Nitrogen 11 mg/dL (7-17); Calcium 6.9 mg/dL (8.4-10.2); Carbon Dioxide 23 mmol/L (22-30); Chloride 102.3 mmol/L (98-107); Glucose 89 mg/dL (65-100); Potassium 4.2 mmol/L (3.6-5.0); Sodium 137 mmol/L (137-145)
[2016-12-15] MEDS ORDERED: PROTONIX PO SCH (10:00)
[2016-12-15] MEDS ORDERED: PHOS-NAK PO SCH (10:28)
--- NOTE | 2016-12-15 10:30 | Progress Note ---
Assessment and Plan - Patient Problems (1) DIPAK (acute kidney injury) Current Visit: Yes Status: Acute Plan to address problem: Hemodynamically mediated DIPAK. Renal function has improved. Replete Mg and Phos. (2) Hypernatremia Current Visit: Yes Status: Acute Plan to address problem: Improved. (3) Metabolic acidosis, increased anion gap Current Visit: Yes Status: Acute Plan to address problem: Improving. (4) Prerenal azotemia Current Visit: Yes Status: Acute Plan to address problem: Improved. (5) Hydronephrosis of left kidney Current Visit: Yes Status: Acute Plan to address problem: Chronic and non-functioning. Patient refused any further intervention. (6) Anemia Current Visit: Yes Status: Chronic Qualifiers: Anemia type: iron deficiency Iron deficiency anemia type: I Vitamin B12 deficiency anemia type: V Folate deficiency anemia type: F Bone marrow failure anemia type: B Hemolytic anemia type: H Other causes of anemia: O Chronic kidney disease stage: C Subjective Date of service: 12/15/16 Interval history: Patient is feeling better. Objective - Vital Signs Vital signs: Vital Signs - 12hr 12/15/16 05:34 Pulse Rate 81 - General Appearance General appearance: well-developed, appears stated age, other (no distress) EENT: ATNC, mucous membranes moist, hearing intact Neck: supple Respiratory: Present: Clear to Ascultation Cardiology: regular, S1S2, no murmurs Gastrointestinal: normoactive bowel sounds, no tenderness Integumentary: no rash Neurologic: no asterixis, alert and oriented x3, other (bilateral blindness) Musculoskeletal: other (no edema) Psychiatric: mood/affect appropriate, cooperative - Lab 12/15/16 08:42 12/15/16 08:42 Most recent lab results Calcium 6.9 mg/dL (8.4-10.2) L 12/15/16 08:42 Phosphorus 1.90 mg/dL (2.5-4.5) L 12/15/16 08:42 Magnesium 1.10 mg/dL (1.7-2.3) L 12/15/16 08:42
[2016-12-15] MEDS ORDERED: SODIUM PHOSPHATE 30 MMOL in NACL 0.9% 500 ML 500 ML IV ONE (11:00)
[2016-12-15] MEDS: LEVAQUIN PO SCH (11:04)
[2016-12-15] MEDS: MAGNESIUM SULFATE 4GM/100ML 4 GM/100 ML BAG IV ONE ×2 (11:07→12:27)
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
--- NOTE | 2016-12-15 16:47 | Discharge Summary ---
Providers - Providers Date of Admission: 12/10/16 17:11 Date of discharge: 12/15/16 Attending physician: YOMAIRA YE 12/10/16 17:51 Consult to Physician [CONS] Routine Consulting Provider: PURVI GREGORIO Reason For Exam: DIPAK Place consult to:: Notified:: Phone number called:: [phone] Was contact made?: Yes If yes, spoke with:: DARLINE HOWARD Time called:: 10:42 12/10/16 17:54 Consult to Wound/ET Nurse [CONS] Routine Reason For Exam: wound eval 12/11/16 07:45 Consult to Case Management [CONS] Routine Services Needed at Discharge: Home Health Services Chief Dietitian Notified:: DIA Beckford Physician Instructions: SNF placement 12/14/16 10:02 Consult to Physician [CONS] Routine Consulting Provider: NIKOS BABB Reason For Exam: FOBT+/anemia Place consult to:: Notified:: Phone number called:: [phone] Was contact made?: Yes If yes, spoke with:: NOLAN Time called:: 10:16 Comment:: CLOTILDE Primary care physician: VP CARDIOVASCULAR Hospitalization Condition: Stable Hospital course: See Discharge summary in reports.Dictated Disposition: DC/[place]-03 SNF W [facility] CERT - Discharge Diagnoses (1) DIPAK (acute kidney injury) Status: Acute (2) Anemia Status: Chronic Qualifiers: Anemia type: iron deficiency Iron deficiency anemia type: I Vitamin B12 deficiency anemia type: V Folate deficiency anemia type: F Bone marrow failure anemia type: B Hemolytic anemia type: H Other causes of anemia: O Chronic kidney disease stage: C (3) Decubitus ulcer Status: Chronic Qualifiers: Pressure ulcer location: sacral region Pressure ulcer stage: stage 4 Laterality: L Qualified Code(s): L89.154 - Pressure ulcer of sacral region, stage 4 (4) Debility Status: Chronic (5) DVT prophylaxis Status: Acute Core Measure Documentation - Palliative Care Palliative Care/ Comfort Measures: Not Applicable - Core Measures Any of the following diagnoses?: none Exam - Physical Exam Narrative exam: Lying in bed curled up - Constitutional Vitals: Temp Pulse Resp BP Pulse Ox 98.5 F 99 H 20 128/79 100 12/15/16 10:00 08/18/17 10:00 12/15/16 10:00 12/15/16 10:00 12/14/16 22:00 General appearance: Present: no acute distress, well-nourished - EENT Eyes: Present: PERRL ENT: hearing intact, clear oral mucosa - Neck Neck: Present: supple, normal ROM - Respiratory Respiratory effort: normal Respiratory: bilateral: CTA - Cardiovascular Heart Sounds: Present: S1 & S2. Absent: rub, click - Extremities Extremities: pulses symmetrical, No edema Peripheral Pulses: within normal limits - Abdominal General gastrointestinal: Present: soft, non-tender, non-distended, normal bowel sounds Female genitourinary: Present: normal - Integumentary Integumentary: Present: clear, warm, dry - Musculoskeletal Musculoskeletal: gait normal, strength equal bilaterally - Psychiatric Psychiatric: appropriate mood/affect, intact judgment & insight - Neurologic Neurologic: CNII-XII intact, moves all extremities Plan Weight Bearing Status: Weight Bear as Tolerated Follow up with: PRIMARY CARE, [Primary Care Provider] - 3-5 Days
[2016-12-15 21:57] VITALS: BP 96/49
[2016-12-15] MEDS ORDERED: MAG-OX PO SCH (22:00)
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
== END 2016-12-15 20:15 | DRG 871 ==
LOC: ED 13:29 → CC2 17:11
PROVIDERS: ADMIT Internal Medicine; ATTEND Internal Medicine
DX: A41.9 Sepsis, unspecified organism (principal); L89.154 Pressure ulcer of sacral region, stage 4; N17.0 Acute kidney failure with tubular necrosis; N39.0 Urinary tract infection, site not specified; E87.0 Hyperosmolality and hypernatremia; E87.2 Acidosis; N13.0 Hydronephrosis with ureteropelvic junction obstruction; R53.81 Other malaise; G62.9 Polyneuropathy, unspecified; Z60.2 Problems related to living alone; D50.9 Iron deficiency anemia, unspecified; H54.0 Blindness, both eyes; Z82.49 Family history of ischemic heart disease and other diseases of the circulatory system; Z74.01 Bed confinement status
CPT/HCPCS: 36415; 71010; 74178; 76770; 80048; 80053; 81001; 82140; 82270; 82550; 82607; 82747; 82805; 83010; 83550; 83615; 83735; 83880; 84100; 85025; 85045; 85610; 85730; 87040; 87086; 87186; 93005; 93010; 96360; 99285; J0295; J1940; J2270; J3370; J3475; J7030; J7040; J7042; J7050; Q9967

== ENCOUNTER 2017-08-21 17:14 | Emergency (ER) | payer MEDICARE ==
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
[2017-08-21 20:49] LABS: Basophils # (Auto) 0.1 K/mm3 (0.0-0.1); Basophils % (Auto) 1.2 % (0.0-1.8); Eosinophils # (Auto) 0.1 K/mm3 (0.0-0.4); Eosinophils % (Auto) 0.9 % (0.0-4.3); Hematocrit 30.7 % (30.3-42.9); Hemoglobin 9.9 gm/dl (10.1-14.3); Lymphocytes # (Auto) 1.8 K/mm3 (1.2-5.4); Lymphocytes % (Auto) 28.2 % (13.4-35.0); Mean Corpuscular HGB Conc 32 % (30-34); Mean Corpuscular Hemoglobin 26 pg (28-32); Mean Corpuscular Volume 81 fl (79-97); Monocytes # (Auto) 0.3 K/mm3 (0.0-0.8); Monocytes % (Auto) 5.4 % (0.0-7.3); Platelet Count 284 K/mm3 (140-440); Red Blood Count 3.79 M/mm3 (3.65-5.03)
[2017-08-21 20:56] LABS: Red Cell Distribution Width 22.3 % (13.2-15.2)
[2017-08-21 21:01] LABS: Alanine Aminotransferase 7 units/L (7-56); Albumin 2.7 g/dL (3.9-5); BUN/Creatinine Ratio 15; Blood Urea Nitrogen 6 mg/dL (7-17); Calcium 8.5 mg/dL (8.4-10.2); Hemolysis Index 0
[2017-08-21 21:10] LABS: Bilirubin,Urine NEG (Negative); Blood,Urine NEG (Negative); Color,Urine Yellow (Yellow); Mucus,Urine FEW /HPF; Protein,Urine <15 mg/dL mg/dL (Negative); RBC,Urine < 1.0 /HPF (0.0-6.0); Urobilinogen,Urine < 2.0 mg/dL (<2.0)
--- NOTE | 2017-08-21 23:02 | Cat Scan Report ---
FINAL REPORT PROCEDURE: CT ABDOMEN PELVIS WO CON TECHNIQUE: Computerized axial tomography of the abdomen and pelvis was performed without intravenous contrast. This study is performed without intravascular contrast material and its sensitivity for abdominal and pelvic pathology, including neoplasms, inflammation, abscess, free fluid, thrombosis, arterial dissection and infarction, is reduced compared with a contrast enhanced study. HISTORY: ABDOMINAL PAIN/h/o kidney stone,s/p drainage COMPARISON: No prior studies are available for comparison. FINDINGS: Visualized lower thorax: No significant abnormality. Liver: Normal size and attenuation. Spleen: Prominent spleen. Gallbladder and biliary system: Normal. Pancreas: There is fluid surrounding the pancreatic tail, which may be originating from the left kidney. Adrenals: Normal. Kidneys: Right kidney is unremarkable in appearance, with no renal calculus or hydronephrosis. There is markedly abnormal appearance of the left kidney. There is severe hydronephrosis and renal cortical atrophy. There is a large calculus in the expected location of the renal pelvis, in a staghorn type configuration. There is a nephrostomy tube present. High density perinephric fluid is present, which may be related to hemorrhage or other complex fluid. Air also tracks in the posterior left flank subcutaneous tissues, which may be related to the drain placement. GI tract: No bowel obstruction or acute inflammation. Lymph nodes and mesentery: Normal. Vasculature: Aortic and bilateral common iliac artery calcification. Bladder: Normal. Reproductive organs: Grossly unremarkable. Peritoneum: Catheter is present in the right abdomen. Musculoskeletal structures: There are degenerative disc changes and facet arthritic changes at L5-S1. There are sclerotic changes of bilateral superior femoral heads, which may be related to osteonecrosis. Other: None. IMPRESSION: There is a drainage catheter in the region of the left kidney. Left kidney is markedly abnormal in appearance, with severe hydronephrosis, pelvic staghorn calculus, and renal cortical thinning. There is also left perinephric high density fluid present, compatible with hemorrhage or other complex fluid.
[2017-08-22 01:13] VITALS: BP 155/67
== END 2017-08-22 02:17 | disposition home or self-care (01) ==
LOC: ED 17:14
DX: N13.2 Hydronephrosis with renal and ureteral calculous obstruction (principal); L89.229 Pressure ulcer of left hip, unspecified stage; K21.9 Gastro-esophageal reflux disease without esophagitis; M19.90 Unspecified osteoarthritis, unspecified site; F32.9 Major depressive disorder, single episode, unspecified; G62.9 Polyneuropathy, unspecified; Z90.01 Acquired absence of eye
CPT/HCPCS: 36415; 74176; 80053; 81001; 85025; 99284